=== PATIENT | male | born 1965 | race Caucasian/White ===

== ENCOUNTER → 2017-01-10 | Day surgery (SDC) | payer OTHER ==
[~2017-01-10] MED LIST: ASPI1TAB7 PO; AUGM500T7 PO; BUPIVACAINE/EPINEPHRINE 0.25% PF 10 ML VIAL ONE; CIPR750 PO; GABA400C5 PO; LACTATED RINGER'S 1,000 ML BAG IV ONE; LIDOCAINE 1.5%/EPINEPHrine 1:200,000 PF SOLN 30 ML AMP ONE; LORTA5 PO; METO50TA PO; MIDAZOLAM HCL 2 MG/2 ML VIAL ONE; NOVOLOGP2 SQ; PRAV10 PO; PROPOFOL 200 MG/20 ML AMP IV ONE; TIMO0.5S4 EACH EYE; TRIAMCINOLONE ACETONIDE 40 MG/ML VIAL ONE; ULTR50TA PO
--- NOTE | 2017-01-10 14:13 | RADRPT ---
EXAM DATE/TIME: 01/10/2017 12:11 [place] COMPARISON: FLUOROSCOPY PORTABLE UP TO 1HR, January 10, 2017, 0:00. INDICATIONS : Intraoperative examination. FINDINGS: The exam demonstrates a needle in place in the right glenohumeral joint. There is no contrast to conf irm placement. There are degenerative changes within the right glenohumeral joint. CONCLUSION: 1. Needle placement in the right glenohumeral joint as above. Vernon Luong MD on January 10, 2017 at 14:09 Board Certified Radiologist. This report was verified electronically.
--- NOTE | 2017-01-11 14:38 | MP ---
cc: AARON BERGER DATE OF SURGERY: 01/10/2017 PREOPERATIVE DIAGNOSIS Right shoulder arthrofibrosis. POSTOPERATIVE DIAGNOSIS Right shoulder arthrofibrosis. SURGEON Aaron Berger MD PROCEDURE Right shoulder manipulation under anesthesia with steroid injection. ANESTHESIA TIVA. PROCEDURE The patient was brought back to operative theater. TIVA anesthesia was administered. We examined the shoulder under anesthesia. Interarticular injection was given of 2 cc of 1% lidocaine and 2 cc of 0.25% Marcaine and 40 mg of Kenalog. This was done under fluoroscopic guidance. This was done after the shoulder was prepped and draped. Preoperative motion was forward flexion to 80 degrees, abduction to 70 degrees, external rotation to -10 degrees. We start with forward flexion, followed by abduction, followed by external rotation, and then across the body motion. We felt typical tearing of the lysis of adhesions associated with manipulation. There were significant numbers of adhesions. We achieved forward flexion to 150 degrees, abduction 150 degrees, external rotation to 20 degrees and better cross-arm motion. We took fluoroscopic imaging including internal and external rotation and the proximal humerus showing no fracture. Postoperative plan is to continue range of motion. MD VERNA Herron/NENITA /1:21 PM /2:35 PM
== END | disposition home or self-care (01) ==
LOC: ESDC 11:15
PROVIDERS: ATTEND Orthopaedic Surgery
DX: M24.611 Ankylosis, right shoulder (principal); E11.9 Type 2 diabetes mellitus without complications; Z79.4 Long term (current) use of insulin; M75.01 Adhesive capsulitis of right shoulder
CPT/HCPCS: 01620; 23700; 73030; 76000; 82948; J2250; J3010; J3301; J7120